=== PATIENT | female | born 1995 | race Two or more races ===

== ENCOUNTER 2018-08-29 21:40 | Emergency (ER) | payer OTHER ==
[~2018-08-29] VITALS: Ht 177.8 cm; Wt 70.3 kg
[2018-08-29] MEDS ORDERED: BENADRYL25 MG (22:39)
== END 2018-08-30 00:13 | disposition home or self-care (01) ==
LOC: ER 21:40
DX: T78.1XXA Other adverse food reactions, not elsewhere classified, initial encounter (principal); R21 Rash and other nonspecific skin eruption